=== PATIENT | female | born 1965 | race Caucasian/White ===

== ENCOUNTER 2017-01-04 05:02 | Inpatient (IN) | payer MEDICAID ==
[~2017-01-04] VITALS: Ht 170.2 cm; Wt 85.5 kg
[2017-01-04] MEDS ORDERED: MORP30TA81 PO (05:14)
[2017-01-04] MEDS ORDERED: OXYC10TA47 PO (05:14)
[2017-01-04] MEDS ORDERED: FENTANYL PF 100 MCG/2ML IVPush PRN (05:30)
[2017-01-04] MEDS ORDERED: SODIUM CHLORIDE FLUSH 10ML SYR IVF ONE (05:30)
[2017-01-04] MEDS ORDERED: FENTANYL PF 100 MCG/2ML ONE (05:39)
[2017-01-04 05:53] LABS: HEMATOCRIT 35.4 % (34.6-47.8); HEMOGLOBIN 11.9 g/dL (11.7-16.4); WHITE BLOOD COUNT 5.6 x10^3/uL (3.4-10)
[2017-01-04 05:59] LABS: BLOOD UREA NITROGEN 13 mg/dL (7-18)
[2017-01-04] MEDS ORDERED: POTASSIUM CHLORIDE 20 MEQ TAB.ER.PRT PO ONE (08:00)
[2017-01-04] MEDS ORDERED: CALCIUM CITRATE 950 MG TABLET PO SCH (08:00)
[2017-01-04] MEDS ORDERED: ONDANSETRON ODT 4 MG PO PRN (08:00)
[2017-01-04] MEDS ORDERED: morphine SULFATE 10 MG/ML, 1ML IVPush PRN (08:00)
[2017-01-04] MEDS ORDERED: ONDANSETRON 2MG/ML, 2ML IVPush PRN (08:00)
[2017-01-04] MEDS: OXYcodone IR 5MG TABLET PO PRN ×4 (08:26→21:57)
[2017-01-04] MEDS ORDERED: PLEASE ENTER ALLERGIES MC SCH ×2 (08:30)
[2017-01-04 08:34] VITALS: BP 113/78
[2017-01-04] MEDS: ENOXAPARIN 40 MG/0.4 ML SQ SCH (09:25)
[2017-01-04] MEDS ORDERED: OXYcodone/APAP 10/325MG TABLET PO ONE (11:30)
[2017-01-04] MEDS ORDERED: GADOBUTROL 7.5 MMOL/7.5 ML PFS ONE (11:45)
[2017-01-04 13:10] VITALS: BP 107/72
[2017-01-04] MEDS ORDERED: CALCIUM CITRATE 950 MG TABLET PO ONE (18:30)
[2017-01-04 19:10] VITALS: BP 106/66
[2017-01-04] MEDS: NS + 20MEQ KCL 1,000 ML IV SCH (20:39)
[2017-01-05 00:43] VITALS: BP 114/78
[2017-01-05] MEDS: ZOLPIDEM 5MG TABLET PO PRN (01:43)
[2017-01-05] MEDS: OXYcodone IR 5MG TABLET PO PRN ×4 (04:33→22:08)
[2017-01-05] MEDS: NS + 20MEQ KCL 1,000 ML IV SCH (04:45)
[2017-01-05 04:53] LABS: HEMATOCRIT 34.9 % (34.6-47.8); HEMOGLOBIN 11.7 g/dL (11.7-16.4)
[2017-01-05 05:07] LABS: BLOOD UREA NITROGEN 13 mg/dL (7-18)
[2017-01-05 06:58] VITALS: BP 125/86
[2017-01-05] MEDS: ENOXAPARIN 40 MG/0.4 ML SQ SCH (08:36)
[2017-01-05 10:33] LABS: DAU SCREEN DISCLAIMER
[2017-01-05 10:46] LABS: PATH.CAST-FLAG NOT PRESENT; SPERM-FLAG NOT PRESENT; SRC-FLAG NOT PRESENT; XTAL-FLAG NOT PRESENT; YLC-FLAG NOT PRESENT
[2017-01-05 13:16] VITALS: BP 117/83
[2017-01-05] MEDS ORDERED: METHOCARBAMOL 750 MG TABLET PO PRN (14:00)
[2017-01-05 18:28] VITALS: BP 133/95
[2017-01-06] MEDS: ZOLPIDEM 5MG TABLET PO PRN (00:35)
[2017-01-06 01:05] VITALS: BP 119/82
[2017-01-06] MEDS: OXYcodone IR 5MG TABLET PO PRN ×5 (03:15→22:59)
[2017-01-06] MEDS: NS + 20MEQ KCL 1,000 ML IV SCH ×2 (03:26→14:21)
[2017-01-06 06:28] VITALS: BP 118/78
[2017-01-06] MEDS: ENOXAPARIN 40 MG/0.4 ML SQ SCH (08:39)
[2017-01-06 12:50] VITALS: BP 104/71
[2017-01-06 19:09] VITALS: BP 108/73
[2017-01-06] MEDS: LORazepam 2 MG/ML, 1ML IVPush SCH (20:24)
[2017-01-06] MEDS: DIPHENHYDRAMINE 50 MG/ML, 1ML IVPush SCH (20:24)
[2017-01-06] MEDS: HYDROmorphone 2MG TABLET PO PRN (21:03)
[2017-01-07 00:50] VITALS: BP 110/76
[2017-01-07] MEDS: HYDROmorphone 2MG TABLET PO PRN ×4 (01:01→17:04)
[2017-01-07] MEDS: NS + 20MEQ KCL 1,000 ML IV SCH (01:01)
[2017-01-07] MEDS: OXYcodone IR 5MG TABLET PO PRN ×2 (03:38→14:45)
[2017-01-07 06:27] LABS: BLOOD UREA NITROGEN 10 mg/dL (7-18)
[2017-01-07 06:34] VITALS: BP 126/63
[2017-01-07] MEDS: ENOXAPARIN 40 MG/0.4 ML SQ SCH (08:46)
[2017-01-07 12:01] VITALS: BP 113/79
[2017-01-07] MEDS: DOCUSATE 100 MG CAPSULE PO PRN (17:04)
[2017-01-07 19:17] VITALS: BP 106/74
[2017-01-07] MEDS: LORazepam 2 MG/ML, 1ML IVPush SCH (20:39)
[2017-01-07] MEDS: DIPHENHYDRAMINE 50 MG/ML, 1ML IVPush SCH (20:39)
[2017-01-08] MEDS: HYDROmorphone 2MG TABLET PO PRN ×4 (01:40→18:21)
[2017-01-08 02:01] VITALS: BP 102/70
[2017-01-08 07:30] VITALS: BP 103/73
[2017-01-08] MEDS: ENOXAPARIN 40 MG/0.4 ML SQ SCH (08:36)
[2017-01-08 14:49] VITALS: BP 87/62
[2017-01-08] MEDS: OXYcodone IR 5MG TABLET PO PRN ×2 (15:37→22:50)
[2017-01-08 18:32] VITALS: BP 93/66
[2017-01-08] MEDS: DIPHENHYDRAMINE 50 MG/ML, 1ML IVPush SCH (21:21)
[2017-01-08] MEDS: LORazepam 2 MG/ML, 1ML IVPush SCH (21:21)
[2017-01-09] MEDS: HYDROmorphone 2MG TABLET PO PRN ×4 (02:52→18:27)
[2017-01-09 03:26] VITALS: BP 99/69
[2017-01-09] MEDS: OXYcodone IR 5MG TABLET PO PRN ×2 (05:25→20:28)
[2017-01-09 06:33] VITALS: BP 80/54
[2017-01-09] MEDS: ENOXAPARIN 40 MG/0.4 ML SQ SCH (08:30)
[2017-01-09] MEDS: METHYLNALTREXONE 12 MG/0.6 ML SQ SCH (13:26)
[2017-01-09] MEDS: DOCUSATE 100 MG CAPSULE PO PRN (13:26)
[2017-01-09] MEDS ORDERED: MAGNESIUM CITRATE 300ML ORAL SOL PO PRN (15:30)
[2017-01-09 15:33] VITALS: BP 106/75
[2017-01-09 19:58] VITALS: BP 114/82
[2017-01-09] MEDS: DIPHENHYDRAMINE 50 MG/ML, 1ML IVPush SCH (21:59)
[2017-01-09] MEDS: LORazepam 2 MG/ML, 1ML IVPush SCH (21:59)
[2017-01-10] MEDS: HYDROmorphone 2MG TABLET PO PRN ×5 (00:44→19:30)
[2017-01-10 02:11] VITALS: BP 104/69
[2017-01-10] MEDS: OXYcodone IR 5MG TABLET PO PRN ×4 (02:21→18:07)
[2017-01-10] MEDS: ENOXAPARIN 40 MG/0.4 ML SQ SCH (07:42)
[2017-01-10 08:17] VITALS: BP 100/69
[2017-01-10 13:04] VITALS: BP 112/82
[2017-01-10 18:19] VITALS: BP 101/68
[2017-01-10] MEDS: DIPHENHYDRAMINE 50 MG/ML, 1ML IVPush SCH (21:22)
[2017-01-10] MEDS: LORazepam 2 MG/ML, 1ML IVPush SCH (21:23)
[2017-01-11] MEDS: HYDROmorphone 2MG TABLET PO PRN ×4 (00:33→19:29)
[2017-01-11 00:40] VITALS: BP 115/79
[2017-01-11] MEDS: OXYcodone IR 5MG TABLET PO PRN ×4 (03:46→22:03)
[2017-01-11 06:56] LABS: BLOOD UREA NITROGEN 14 mg/dL (7-18)
[2017-01-11 07:02] VITALS: BP 101/65
[2017-01-11] MEDS: ENOXAPARIN 40 MG/0.4 ML SQ SCH (07:36)
[2017-01-11] MEDS: LORazepam 1MG TABLET PO PRN (11:57)
[2017-01-11] MEDS: METHYLNALTREXONE 12 MG/0.6 ML SQ SCH (11:57)
[2017-01-11 13:26] VITALS: BP 91/62
[2017-01-11 20:33] VITALS: BP 105/70
[2017-01-11] MEDS: DIPHENHYDRAMINE 50 MG/ML, 1ML IVPush SCH (21:18)
[2017-01-11] MEDS: LORazepam 2 MG/ML, 1ML IVPush SCH (21:19)
[2017-01-12 01:18] VITALS: BP 107/67
[2017-01-12] MEDS: HYDROmorphone 2MG TABLET PO PRN ×3 (01:40→20:10)
[2017-01-12] MEDS: OXYcodone IR 5MG TABLET PO PRN ×3 (04:09→17:32)
[2017-01-12] MEDS: LORazepam 1MG TABLET PO PRN (05:31)
[2017-01-12 06:50] VITALS: BP 95/65
[2017-01-12] MEDS ORDERED: HYDROmorphone 1 MG/ML, 1ML IV ONE ×2 (09:00→14:30)
[2017-01-12 09:12] VITALS: BP 104/72
[2017-01-12] MEDS: ENOXAPARIN 40 MG/0.4 ML SQ SCH (09:13)
[2017-01-12 12:27] VITALS: BP 103/71
[2017-01-12] MEDS ORDERED: SUMATRIPTAN 25 MG TABLET PO PRN (19:30)
[2017-01-12 19:39] VITALS: BP 107/72
[2017-01-12] MEDS: DIPHENHYDRAMINE 50 MG/ML, 1ML IVPush SCH (22:13)
[2017-01-12] MEDS: LORazepam 2 MG/ML, 1ML IVPush SCH (22:16)
[2017-01-13] VITALS (7 sets, daily range): BP systolic 94–111; BP diastolic 55–78
[2017-01-13] MEDS: HYDROmorphone 2MG TABLET PO PRN ×4 (02:37→21:25)
[2017-01-13] MEDS: LORazepam 1MG TABLET PO PRN (04:53)
[2017-01-13] MEDS ORDERED: DIPHENHYDRAMINE 25 MG CAPSULE ONE (05:29)
[2017-01-13] MEDS: DIPHENHYDRAMINE 25 MG CAPSULE PO PRN (05:30)
[2017-01-13] MEDS: ENOXAPARIN 40 MG/0.4 ML SQ SCH (09:30)
[2017-01-13] MEDS: METHYLNALTREXONE 12 MG/0.6 ML SQ SCH (10:29)
[2017-01-13] MEDS: OXYcodone IR 5MG TABLET PO PRN ×2 (12:10→17:15)
[2017-01-13] MEDS ORDERED: PHENAZOPYRIDINE 100 MG TABLET PO SCH (16:30)
[2017-01-13] MEDS ORDERED: NITROFURANTOIN (MACROBID) 100 MG CAPSULE PO SCH (21:00)
[2017-01-13] MEDS: LORazepam 2 MG/ML, 1ML IVPush SCH (22:39)
[2017-01-13] MEDS: DIPHENHYDRAMINE 50 MG/ML, 1ML IVPush SCH (22:39)
[2017-01-14 01:14] VITALS: BP 109/78
[2017-01-14] MEDS: HYDROmorphone 2MG TABLET PO PRN ×5 (01:42→20:50)
[2017-01-14] MEDS: OXYcodone IR 5MG TABLET PO PRN ×4 (03:15→22:53)
[2017-01-14 07:50] VITALS: BP 98/67
[2017-01-14] MEDS: LORazepam 1MG TABLET PO PRN ×2 (09:02→20:00)
[2017-01-14] MEDS: ENOXAPARIN 40 MG/0.4 ML SQ SCH (09:02)
[2017-01-14 13:26] VITALS: BP 95/66
[2017-01-14 14:37] VITALS: BP 99/65
[2017-01-14 19:15] VITALS: BP 106/74
[2017-01-14] MEDS: DIPHENHYDRAMINE 25 MG CAPSULE PO PRN (20:00)
[2017-01-14] MEDS ORDERED: TEMAZEPAM 15 MG CAPSULE PO ONE (23:00)
[2017-01-15 02:35] VITALS: BP 95/64
[2017-01-15] MEDS: HYDROmorphone 2MG TABLET PO PRN ×3 (02:36→16:48)
[2017-01-15] MEDS: OXYcodone IR 5MG TABLET PO PRN ×3 (06:01→20:38)
[2017-01-15 08:45] VITALS: BP 100/53
[2017-01-15] MEDS: LORazepam 1MG TABLET PO PRN ×3 (08:54→21:12)
[2017-01-15] MEDS: ENOXAPARIN 40 MG/0.4 ML SQ SCH (08:54)
[2017-01-15] MEDS: METHYLNALTREXONE 12 MG/0.6 ML SQ SCH (11:29)
[2017-01-15 12:16] VITALS: BP 93/64
[2017-01-15 19:44] VITALS: BP_SYST 102; BP_SYST 111; BP_DIAS 68
[2017-01-15] MEDS: SENNA/DOCUSATE TABLET PO SCH (20:39)
[2017-01-15] MEDS ORDERED: TEMAZEPAM 15 MG CAPSULE PO ONE (21:00)
[2017-01-15] MEDS: DIPHENHYDRAMINE 25 MG CAPSULE PO PRN (21:39)
[2017-01-16] MEDS ORDERED: DIPHENHYDRAMINE 50 MG/ML, 1ML IVPush ONE ×2 (00:30→22:00)
[2017-01-16] MEDS ORDERED: LORazepam 2 MG/ML, 1ML IV ONE (00:30)
[2017-01-16 01:15] VITALS: BP 140/82
[2017-01-16 01:17] VITALS: BP 108/75
[2017-01-16 06:29] VITALS: BP 98/75
[2017-01-16] MEDS: SENNA/DOCUSATE TABLET PO SCH ×2 (10:09→21:00)
[2017-01-16] MEDS: ENOXAPARIN 40 MG/0.4 ML SQ SCH (10:09)
[2017-01-16] MEDS: HYDROmorphone 2MG TABLET PO PRN ×3 (12:56→23:14)
[2017-01-16 13:40] VITALS: BP_SYST 86; BP_SYST 87; BP_DIAS 61; BP_DIAS 65
[2017-01-16] MEDS: LORazepam 1MG TABLET PO PRN (16:46)
[2017-01-16 19:54] VITALS: BP_SYST 101; BP_SYST 93; BP_DIAS 62; BP_DIAS 70
[2017-01-16] MEDS: DOCUSATE 100 MG CAPSULE PO PRN ×2 (21:05→21:09)
[2017-01-16] MEDS ORDERED: LORazepam 2 MG/ML, 1ML IVPush ONE (22:00)
[2017-01-17] MEDS: OXYcodone IR 5MG TABLET PO PRN (01:47)
[2017-01-17] MEDS: HYDROmorphone 2MG TABLET PO PRN ×3 (03:24→13:09)
[2017-01-17] MEDS: LORazepam 1MG TABLET PO PRN ×2 (03:31→07:36)
[2017-01-17 03:34] VITALS: BP 118/82
[2017-01-17] MEDS: DIPHENHYDRAMINE 25 MG CAPSULE PO PRN (05:28)
[2017-01-17 05:32] VITALS: BP 107/73
[2017-01-17 06:28] VITALS: BP 110/77
[2017-01-17] MEDS: ENOXAPARIN 40 MG/0.4 ML SQ SCH (09:50)
[2017-01-17] MEDS: SENNA/DOCUSATE TABLET PO SCH (09:50)
[2017-01-17] MEDS ORDERED: DIPHENHYDRAMINE 50 MG/ML, 1ML IVPush ONE (10:00)
[2017-01-17] MEDS ORDERED: SENN1TAB7 PO (10:09)
[2017-01-17] MEDS ORDERED: CYCL5TAB PO (10:09)
[2017-01-17] MEDS ORDERED: MORP15TA3 PO (10:09)
[2017-01-17] MEDS ORDERED: OXYC5TAB3 PO (10:09)
[2017-01-17] MEDS ORDERED: DIPH25CA61 PO (10:09)
[2017-01-17] MEDS ORDERED: POLY17PO5 PO (10:12)
[2017-01-17] MEDS: METHYLNALTREXONE 12 MG/0.6 ML SQ SCH (10:28)
[2017-01-17 10:35] VITALS: BP 99/66
[2017-01-17 14:00] VITALS: BP 97/61
== END 2017-01-17 16:03 | disposition home or self-care (01) | DRG 91 ==
LOC: ED 05:53 → EDIP 06:33 → 3NE 07:39
PROVIDERS: ADMIT Internal Medicine; ATTEND Emergency Medicine
DX: R20.2 Paresthesia of skin (principal); G82.50 Quadriplegia, unspecified; E46 Unspecified protein-calorie malnutrition; E11.65 Type 2 diabetes mellitus with hyperglycemia; Z86.74 Personal history of sudden cardiac arrest; F11.20 Opioid dependence, uncomplicated; E83.51 Hypocalcemia; K51.90 Ulcerative colitis, unspecified, without complications; K74.60 Unspecified cirrhosis of liver; F31.81 Bipolar II disorder; R53.1 Weakness; W01.0XXA Fall on same level from slipping, tripping and stumbling without subsequent striking against object, initial encounter; E87.6 Hypokalemia; F44.9 Dissociative and conversion disorder, unspecified; G47.00 Insomnia, unspecified; G89.29 Other chronic pain; I10 Essential (primary) hypertension; J45.909 Unspecified asthma, uncomplicated; K59.00 Constipation, unspecified; M10.9 Gout, unspecified; M48.00 Spinal stenosis, site unspecified; N80.9 Endometriosis, unspecified; W22.8XXA Striking against or struck by other objects, initial encounter; Y93.01 Activity, walking, marching and hiking; Z76.5 Malingerer [conscious simulation]; Z79.82 Long term (current) use of aspirin; Z79.891 Long term (current) use of opiate analgesic; Z80.3 Family history of malignant neoplasm of breast; I25.2 Old myocardial infarction; Z82.5 Family history of asthma and other chronic lower respiratory diseases; Z85.41 Personal history of malignant neoplasm of cervix uteri; Z85.42 Personal history of malignant neoplasm of other parts of uterus; Z85.43 Personal history of malignant neoplasm of ovary; Z85.828 Personal history of other malignant neoplasm of skin; Z86.73 Personal history of transient ischemic attack (TIA), and cerebral infarction without residual deficits; Z90.710 Acquired absence of both cervix and uterus; Z92.21 Personal history of antineoplastic chemotherapy; Z98.1 Arthrodesis status; Z91.5 Personal history of self-harm; Z68.29 Body mass index [BMI] 29.0-29.9, adult; Z88.0 Allergy status to penicillin; Z88.8 Allergy status to other drugs, medicaments and biological substances
CPT/HCPCS: 36415; 70450; 71010; 72125; 72156; 72157; 72158; 74150; 74176; 80048; 80061; 80307; 81001; 81003; 82040; 83735; 84100; 85025; 85610; 93005; 96374; A9585; J1170; J1650; J2405; J3010; J3480; J7509; Q0162; G0479; J1200; J2060; J7512; Q0163